=== PATIENT | male | born 1975 | race Caucasian/White ===

== ENCOUNTER 2024-06-17 12:38 | Outpatient (CLI) | payer OTHER ==
[2024-06-17] MEDS ORDERED: Iopamidol 300 61% 100 ML VIAL FS ONE (13:12)
== END 2024-06-17 12:39 | disposition home or self-care (01) ==
LOC: CSHULT 12:38
PROVIDERS: ATTEND Physician Assistant Medical
DX: R10.9 Unspecified abdominal pain (principal); R63.4 Abnormal weight loss; R19.09 Other intra-abdominal and pelvic swelling, mass and lump; C78.7 Secondary malignant neoplasm of liver and intrahepatic bile duct
CPT/HCPCS: 74177; Q9967